=== PATIENT | female | born 1985 | race Caucasian/White ===

== ENCOUNTER 2020-04-01 16:59 | Emergency (ER) | payer OTHER, SELFPAY ==
[2020-04-01 17:01] VITALS: BP 157/107; PULSE 97; RESP 19; TEMP 37.2; O2SAT 97; BMI 18.3
--- NOTE | 2020-04-01 17:15 | CT_ITS ---
PROCEDURE: CT CERVICAL SPINE WO CON Referring Doctor: Shahriar Vásquez Patient Age:35Y CLINICAL INDICATION: pain right-sided neck pain with patient extending into the right shoulder 1 week symptoms but with nausea. COMPARISON: CS5 CERVICAL SPINE 4 OR 5 VIEWS from 03/14/2017 TECHNIQUE: No IV contrast Helical axial images obtained with sagittal and coronal reformats. All CT scans at the facility use one or more dose reduction, viz: automated exposure control, ma/kV adjustment per patient size (including targeted exams where dose is matched to indication, i.e. head), or iterative reconstruction technique. FINDINGS: Cervical spine with no fracture nor subluxation evident. Normal alignment. Normal prevertebral soft tissues. Facets intact with normal relationships. No remarkable degenerative facet changes. Vertebral bodies intact. Neural foramina widely patent at all levels Cranial cervical junction unremarkable. Normal C1/C2 relationships and appearance. The disc spaces are individual reviewed but would note that CT is best utilized for osseous evaluation; and MR most optimal to evaluate disc and soft tissue elements. Overall these disc spaces are well maintained with only scant narrowing at C4/5 disc space. I would also note this patient has a generous volume osseous cervical canal which may decrease the impact of early developing cervical spondylosis C2/3. Disc height well maintained. Disc intact and unremarkable C3/4.. Disc height maintained. Only scant central disc prominence C4/5. Subtle degenerative disc space narrowing; with trace central disc prominence, with only scant developing uncovertebral joint hypertrophy to the right and left paracentral regions. Minimal appearing, very unimpressive features overall. No foraminal encroachment C5/6... Disc height maintained and unremarkable disc intact. Neural foramen widely patent C6/7. Disc height a fairly well maintained with only borderline narrowing. Anterior marginal osteophytes most evident at this level. The sagittal reconstruction views suggest trace central disc prominence and bulge. Neural foramina widely patent C7/T1, T1/T2. Unremarkable by CT Again if there are persistent progressive radicular symptoms MR is best for evaluating for cervical disc disease. Who the The apices of lungs are clear with no acute findings. No evident masses identified at the supraclavicular regions. No gross pathology at region of brachial plexus There is a previous plain film study of C-spine from 2017 which showed a similar appearance with developing anterior marginal osteophytes at C6/7 IMPRESSION: --Cervical spine intact with no fracture nor subluxation.. Only minor barely evident scant early degenerative changes C-spine.. Generous volume osseous cervical canal with neural foramen widely patent at all levels --MR is best to evaluate cervical disc and soft tissue elements,, but today's CT no obvious disc herniation or definitive disc protrusion --Again overall disc spaces are fairly well maintained and unimpressive: . Only note perhaps is trace subtle disc space narrowing with minimal central disc prominence and trace early uncovertebral joint hypertrophy at C4/5.-unimpressive . C6/7: Borderline disc space narrowing with anterior marginal osteophytes, and mild central disc prominence posteriorly. . C3/4: Only trace central disc prominence. Dictated by: Silvio Howard MD 04/01/2020 18:15 Silvio Howard MD in [place] 04/01/2020 18:15
[2020-04-01 17:34] LABS: Urine Pregnancy, HCG Qual. Negative (Negative)
--- NOTE | 2020-04-01 17:42 | HMH.EDGENADL ---
ED Disposition Clinical Impression: Neck pain Disposition: Home, Self-Care Condition on Discharge: Good Instructions: DI for Neck Pain Additional Instructions: Ibuprofen as prescribed. Heating pad for 30 minutes 2-3 times a day. Follow-up with your primary care doctor, call tomorrow to make appointment. Additional instructions for NECK PAIN: See your physician as soon as possible for further evaluation. Return immediately if neck pain becomes intolerable, or if fever, numbness or weakness of your arms or legs, loss of control of your bowels or bladder. Prescriptions: Ibuprofen [Ibuprofen 600mg Tab] 600 mg PO Q6HP PRN #20 tab PRN Reason: Moderate Pain Transmission Status: Pending to [id number] Referrals: Sheldon Victoria MD [Primary Care Provider] - - Critical Care Critical Care Time: No Attestation: On 04/01/20, the high probability of a clinically significant, sudden or life threatening deterioration of the following system(s) required my full and direct attention, intervention and personal management. The time I documented below is in addition to time spent performing reported procedures but includes the following listed in this critical care notation. Medical Decision Making - Casey Inquiry Pt receiving controlled substance: No Vital Signs: 04/01/20 17:01 Temperature 98.9 F Temperature Source Oral Pulse Rate [Left Radial] 97 H Respiratory Rate 19 Blood Pressure [Right Arm] 157/107 H Blood Pressure Mean [Right Arm] 123 Blood Pressure Source [Right Arm] Automatic Cuff Blood Pressure Position [Right Arm] Sitting 02 Sat by Pulse Oximetry 97 Oxygen Delivery Method Room Air - Lab Data Lab Results 04/01/20 17:17: Urine HCG, Qual Negative - CT Data CT Scan: C-Spine Time Received: 18:[address] Reviewed: Yes: I have viewed the radiologist's interpretation Findings Narrative: PROCEDURE: CT CERVICAL SPINE WO CON Referring Doctor: Shahriar Vásquez Patient Age:35Y CLINICAL INDICATION: pain right-sided neck pain with patient extending into the right shoulder 1 week symptoms but with nausea. COMPARISON: CR CS5 CERVICAL SPINE 4 OR 5 VIEWS from 03/14/2017 TECHNIQUE: No IV contrast Helical axial images obtained with sagittal and coronal reformats. All CT scans at the facility use one or more dose reduction, viz: automated exposure control, ma/kV adjustment per patient size (including targeted exams where dose is matched to indication, i.e. head), or iterative reconstruction technique. FINDINGS: Cervical spine with no fracture nor subluxation evident. Normal alignment. Normal prevertebral soft tissues. Facets intact with normal relationships. No remarkable degenerative facet changes. Vertebral bodies intact. Neural foramina widely patent at all levels Cranial cervical junction unremarkable. Normal C1/C2 relationships and appearance. The disc spaces are individual reviewed but would note that CT is best utilized for osseous evaluation; and MR most optimal to evaluate disc and soft tissue elements. Overall these disc spaces are well maintained with only scant narrowing at C4/5 disc space. I would also note this patient has a generous volume osseous cervical canal which may decrease the impact of early developing cervical spondylosis C2/3. Disc height well maintained. Disc intact and unremarkable C3/4.. Disc height maintained. Only scant central disc prominence C4/5. Subtle degenerative disc space narrowing; with trace central disc prominence, with only scant developing uncovertebral joint hypertrophy to the right and left paracentral regions. Minimal appearing, very unimpressive features overall. No foraminal encroachment C5/6... Disc height maintained and unremarkable disc intact. Neural foramen widely patent C6/7. Disc height a fairly well maintained with only borderline narrowing. Anterior marginal osteoph
[2020-04-01 18:45] VITALS: BP 122/85; PULSE 80; RESP 18; TEMP 36.6; O2SAT 100
== END 2020-04-01 18:46 | disposition home or self-care (01) ==
PROVIDERS: Emergency Provider Emergency Medicine; PCP Emergency Medicine
DX: M54.2 Cervicalgia (principal); F17.210 Nicotine dependence, cigarettes, uncomplicated; F41.8 Other specified anxiety disorders; F19.11 Other psychoactive substance abuse, in remission
CPT/HCPCS: 72125; 81025; 96372; 99282

== ENCOUNTER → 2020-04-05 15:47 | Outpatient (CLI) | payer OTHER, SELFPAY ==
[2020-04-10 15:20] LABS: Neisseria gonorrhoeae, NAA Negative (Negative)
== END ==
PROVIDERS: Visit Provider Nurse Practitioner Family
DX: Z11.3 Encounter for screening for infections with a predominantly sexual mode of transmission (principal)
CPT/HCPCS: 87491; 87591

== ENCOUNTER → 2020-04-18 15:38 | Outpatient (CLI) | payer OTHER, SELFPAY ==
--- NOTE | 2020-04-18 15:38 | MR_ITS ---
PROCEDURE: MR CERVICAL SPINE WO CON CLINICAL INDICATION: abnormal ct c spine PT COMPLAINS OF NECK PAIN XYRS. NO INJURY. PRIOR CT 04-01-20 COMPARISON: CT CT CERVICAL SPINE WO CON from 04/01/2020 TECHNIQUE: Standard multiplanar multiecho sequences are performed without contrast. 3-D MIP and myelographic images are also rendered and reviewed FINDINGS: There is normal alignment. The craniocervical junction has an unremarkable appearance. C2-C3 has an unremarkable appearance. C3-C4: Minimal prominence of the posterior longitudinal ligament without impingement. C4-C5: Unremarkable. C5-C6: Unremarkable. C6-C7 and C7-T1 have an unremarkable appearance. No canal stenosis or extruded herniated disc IMPRESSION: Essentially negative MRI of the cervical spine. Dictated by: Joshua Feliz MD 04/21/2020 09:36 Joshua Feliz MD in [place] 04/21/2020 09:36
== END ==
PROVIDERS: PCP Nurse Practitioner Family; Visit Provider Nurse Practitioner Family
DX: M54.2 Cervicalgia (principal)
CPT/HCPCS: 72141; 76376

== ENCOUNTER 2020-07-30 20:03 | Emergency (ER) | payer OTHER, SELFPAY ==
[2020-07-30 20:15] VITALS: BP 114/88; PULSE 105; RESP 20; TEMP 37.7; O2SAT 97; BMI 17.4
--- NOTE | 2020-07-30 20:29 | HMH.EDUTC ---
[facility] [place] Disposition Clinical Impression: Nausea Disposition: Home, Self-Care Condition on Discharge: Good Instructions: DI for Nausea -- Adult, Ondansetron, DI for Vomiting -- Adult, Nausea and Vomiting-Adult, Diarrhea Additional Instructions: ? Avoid fruit juices, as these do not replace minerals and can actually increase diarrhea. ? Children and adults can use sports drinks to replenish electrolytes. Younger children and infants should use products formulated for children, like oral rehydration solutions. ? Eat food in small amounts and let your stomach recover. ? Get lots of rest. You may feel tired or weak. ? No greasy or fried foods for the next 24-48 hours BRAT diet Bananas Rice Apples and [place] ? Make sure to drink plenty of liquids ? Return if needed ? Straight to ER if any life threatening symptoms ? Zofran as prescribed ? Follow up with family doctor in the next 48-72 hours if no improvement or any worsening of symptoms *Monitor Temp, Over the counter Motrin or Tylenol as directed/as needed Tylenol every 4 hours and Motrin every 6 hours (as long as your family doctor has told you that you can take it) for fever or pain. and straight to ER if unable to lower temp less than 101.0 after medication given Follow up IMMEDIATELY for new or worsening symptoms or no Noticeable improvement over the next 48-72 hours. 911 for difficulty breathing or swallowing You were tested for today for COVID19 your test result should be back in the next 24-48 hours, you may call to the [facility] to see if your test results are back in the next 48 hours [phone] [facility] hours are 9am-9pm You was given a handout with instructions for Self Quarantine and Self isolation for while you wait on test results and what to do if they are positive If you are positive the Health Dept will be contacting you also Prescriptions: Ondansetron [Zofran 4mg ODT] 4 mg PO TIDP PRN #12 tab PRN Reason: Vomiting Transmission Status: Pending to [id number] Referrals: Arcadio Montalvo APRN [Primary Care Provider] - As needed Forms: Work/School Release Time of Disposition: 21:11 Medical Decision Making - Casey Inquiry Pt receiving controlled substance: No Casey was queried for this patient: No Vital Signs: 01/18/21 20:15 Temperature 99.9 F H Temperature Source Oral Pulse Rate [Right Brachial] 105 H Respiratory Rate 20 Blood Pressure [Right Arm] 114/88 Blood Pressure Mean [Right Arm] 96 Blood Pressure Source [Right Arm] Automatic Cuff Blood Pressure Position [Right Arm] Sitting 02 Sat by Pulse Oximetry 97 Oxygen Delivery Method Room Air - Lab Data Lab results reviewed: Yes: I reviewed the patient's lab results. Lab Results 07/30/20 20:29: Influenza Type A Ag Negative, Influenza Type B Ag Negative Orders (Tests/Meds): ED MEDICATIONS Discontinued Medications Generic Name Dose Route Start Last Admin Trade Name Freq PRN Reason Stop Dose Admin Ondansetron HCl 4 mg 07/30/20 20:29 07/30/20 20:30 Ondansetron 4mg Odt SL 07/30/20 20:30 4 mg ONCE ONE Administration ORDERS Category Date Time Status Covid-19 Nasal PCR Sendout P&C Stat Lab 07/30/20 20:20 Received Medical Decision Narrative: Patient denies and denies home medications States that she has taken zofran before without complications or reactions No vomiting after medication patient states that she feels a little better [facility] [place] HPI - General Stated complaint: Nauseous;Excessive vomiting Time Seen by Provider: 07/30/20 20:29 Mode of Arrival: Ambulatory Source of Information: Patient Limitations: No Limitations Description of Symptoms (Recalled from Triage Doc. by RN): PATIENT STATES SHE HAD VOMITING AND DIARRHEA ALL NIGHT LAST NIGHT WITH HOT FLASHES HEENT Symptoms (Recalled from RN notes): No Resp Symptoms (Recalled from RN notes): No Skin Symptoms (Recalled from RN notes): No MS Symptoms (Recalled from RN notes): No Functional Status (Recall
[2020-07-30 20:58] LABS: UTC Influenza A Antigen Negative (Negative); UTC Influenza B Antigen Negative (Negative)
[2020-07-30 21:23] VITALS: BP 114/88; PULSE 105; RESP 20; TEMP 37.7; O2SAT 97
[2020-08-01 08:31] LABS: Covid-19 Nasal PCR Sendout P&C NEGATIVE
== END 2020-07-30 21:26 | disposition home or self-care (01) ==
PROVIDERS: Emergency Provider Nurse Practitioner; PCP Nurse Practitioner Family
DX: Z20.822 Contact with and (suspected) exposure to COVID-19 (principal); R11.2 Nausea with vomiting, unspecified
CPT/HCPCS: 87804; 99202; G0463; U0004

== ENCOUNTER 2021-03-24 15:46 | Emergency (ER) | payer OTHER, SELFPAY ==
[2021-03-24 16:32] VITALS: BP 137/71; PULSE 85; RESP 16; TEMP 36.8; O2SAT 96; BMI 17.4
--- NOTE | 2021-03-24 16:45 | HMH.EDUTC ---
[facility] [place] Clinical Impression: Neck pain Disposition: Home, Self-Care Condition on Discharge: Good Instructions: DI for Chronic Neck Pain Additional Instructions: Follow up with Arcadio this week. Also try to get eye exam to evaluate papilledema. Referrals: Arcadio Montalvo APRN [Primary Care Provider] - Time of Disposition: 17:00 Medical Decision Making - Casey Inquiry Pt receiving controlled substance: No Vital Signs: 03/24/21 16:32 Temperature 98.3 F Temperature Source Oral Pulse Rate [Left] 85 Respiratory Rate 16 Blood Pressure [Right Arm] 137/71 Blood Pressure Mean [Right Arm] 93 02 Sat by Pulse Oximetry 96 [facility] [place] HPI - General Stated complaint: neck pain headache no accident Time Seen by Provider: 03/24/21 16:45 Mode of Arrival: Ambulatory Source of Information: Patient Limitations: No Limitations Description of Symptoms (Recalled from Triage Doc. by RN): pt c/o of neck pain and that its difficult to hold her head up. this has been ongoing for awhile. pt is also sensitive to light. HEENT Symptoms (Recalled from RN notes): Yes (neck pain and light sensitivity.) Resp Symptoms (Recalled from RN notes): No Skin Symptoms (Recalled from RN notes): No MS Symptoms (Recalled from RN notes): No Functional Status (Recalled from RN notes): na - History of Present Illness Provider Complaint: Patient has neck pain radiating into her head. Has had ongoing neck pain. Has had for years. Has seen chiropractor in the past. Had MRI last year. Has sensitivity to light, head feels heavy like she literally cannot hold it up. Feels like there is pressure in the back of her head that is going to explode. Onset (ago): unknown Location: head Radiation: neck Consistency: constant Relieving factors: none Exacerbating factors: none Associated symptoms: denies other symptoms Treatments prior to arrival: none - Related Data Previous Rx's Medication Instructions Recorded cephalexin 500 mg capsule 500 mg PO Q12H 10 Days #20 cap 12/12/20 mupirocin calcium 2 % topical cream 1 applic TOPICAL BID #15 g 12/12/20 Allergies Allergy/AdvReac Type Severity Reaction Status Date / Time No Known Allergies Allergy Verified 12/12/20 14:11 - Worker's Comp Is this a Worker's Comp case?: No [facility] History - Hepatitis A Screen Drug use history?: No High risk sexual behaviors?: No History of sexually transmitted infection?: No Currently employed?: No Childcare worker?: No Do you have indoor plumbing?: Yes Do you have electricity?: Yes Attestation statement:: This patient has been screened for Hepatitis A risk factors. I have reviewed the patient's past medical history: Yes Medical History: Reports:: Anxiety, Depression Other Surgeries: Yes: Other Amputation: No Fractures: No Comment: abortions x2, place removed from side - Social History Smoking Status: Current every day smoker Tobacco Type: cigarettes # Packs/Day (cigarettes): 1 Alcohol Intake: never Alcohol Intake Frequency:: holidays/special occasions only Substance Use Type: former substance user, marijuana Occupational Status: other - Psychiatric History Pschychiatric History:: Reports:: Anxiety, Depression Family Hx:: No significant family history ROS Obtained: Yes All systems reviewed & no additional complaints - Eyes Eyes: Reports sensitivity to light - Musculoskeletal Musculoskeletal: Reports neck pain Physical Exam - General General appearance: alert, in no apparent distress - Head Head exam: atraumatic, normocephalic - Eye Eye exam: Present: PERRL - ENT ENT exam: Present: normal oropharynx, TM's normal bilaterally - Neck Neck exam: Present: normal inspection, full ROM, tenderness. Absent: meningismus, lymphadenopathy - Chest Chest inspection: Present: normal inspection, symmetric chest wall rise - Respiratory Respiratory exam: Present: normal lung sounds bilaterally. Absent: respiratory distress - Cardi
[2021-03-24 17:17] VITALS: BP 137/71; PULSE 85; RESP 16; TEMP 36.8
== END 2021-03-24 17:51 | disposition home or self-care (01) ==
LOC: ER 16:10 → UTC 16:10
PROVIDERS: Emergency Provider Physician Assistant; PCP Nurse Practitioner Family
DX: M54.2 Cervicalgia (principal); F41.8 Other specified anxiety disorders; F17.210 Nicotine dependence, cigarettes, uncomplicated
CPT/HCPCS: 99202; G0463

== ENCOUNTER 2021-05-23 03:21 | Emergency (ER) | payer OTHER, SELFPAY ==
[2021-05-23 03:23] VITALS: BP 139/68; PULSE 116; RESP 16; TEMP 37.1; O2SAT 96; BMI 17.4
--- NOTE | 2021-05-23 03:38 | CT_ITS ---
PROCEDURE INFORMATION: Exam: CT Cervical Spine Without Contrast Exam date and time: 05/23/2021 3:38 AM Age: 36 years old Clinical indication: Patient HX: Neck pain for awhile, no known injury TECHNIQUE: Imaging protocol: Computed tomography images of the cervical spine without contrast. Radiation optimization: All CT scans at this facility use at least one of these dose optimization techniques: automated exposure control; mA and/or kV adjustment per patient size (includes targeted exams where dose is matched to clinical indication); or iterative reconstruction. COMPARISON: MR CERVICAL SPINE WO CON 04/18/2020 4:14 PM FINDINGS: Bones/joints: There is minimal grade 1 anterolisthesis of C3 on C4, similar to prior MRI and likely chronic/degenerative. No new spondylolisthesis or uncovering of facet joints. No acute cervical spine fracture. Discs/Spinal canal/Neural foramina: Mild disc height loss and degenerative endplate spurring at C4-C5 and C5-C6. There is [id number]-[id number] degenerative disc disease at C6-C7. There is slight effacement of the ventral thecal space from C3-C4 through C6-C7 due to disc bulging/protrusions, without evidence of a significant spinal canal stenosis. There is mild left and minimal right neural foraminal narrowing at C6-C7 due to endplate spurring and uncovertebral hypertrophy. Lungs: Mild scarring at the bilateral lung apices. Soft tissues: Unremarkable. IMPRESSION: 1. No acute finding within the cervical spine. 2. Chronic minimal grade 1 anterolisthesis of C3 on C4. 3.Mild degenerative changes as discussed above, without evidence of significant spinal canal stenosis.
[2021-05-23 03:47] LABS: Microscopic, Urine URINE MICROSCOPIC (MICROSCOPIC)
[2021-05-23 03:51] LABS: Bilirubin,Urine Negative (Negative); Blood, Urine Negative (Negative); Color,Urine YELLOW (Yellow); Glucose,Urine (UA) Negative (Negative); Ketones,Urine Negative (Negative); Leukocyte Esterase,Urine Negative (Negative); Nitrate,Urine POSITIVE (Negative); PH,Urine 5.5 (5.0-8.5); Protein,Urine Negative (Negative); Specific Gravity, Urine >= 1.030 (1.005-1.030); Urobilinogen,Urine 0.2 EU/dl (0.2)
[2021-05-23 03:54] LABS: Urine Pregnancy, HCG Qual. Negative (Negative)
[2021-05-23 03:56] LABS: Basophils # 0.1 K/mm3 (0-0.2); Basophils % 0.5 % (0.1-2.0); Eosinophils # 0.3 K/mm3 (0.0-0.4); Eosinophils % 1.9 % (0.1-12.0); Hematocrit 43.5 % (37.0-47.0); Hemoglobin 13.9 g/dL (12.2-16.2); Lymphocytes # 4.5 K/mm3 (0.7-4.5); Lymphocytes % 24.9 % (10-50); Mean Corpuscular HGB Conc 32.1 g/dL (31.8-35.4); Mean Corpuscular Hemoglobin 31.4 pg (27.0-31.2); Mean Corpuscular Volume 97.9 fl (81-99); Mean Platelet Volume 9.7 fl (7.4-10.4); Monocytes # 0.6 K/mm3 (0.1-1.0); Monocytes % 3.4 % (1.7-9.3); Neutrophils # 12.4 K/mm3 (1.8-7.8); Neutrophils % 69.3 % (37.0-80.0); Platelet Count 231 K/mm3 (142-424); Red Blood Count 4.44 M/mm3 (4.20-5.40); White Blood Count 17.9 K/mm3 (4.8-10.8)
[2021-05-23 03:57] LABS: Alanine Aminotransferase 13 U/L (12-78); Albumin Level 4.6 g/dl (3.5-5.0); Albumin/Globulin Ratio 1.8 (1.1-1.8); Alkaline Phosphatase 49 U/L (38-126); Anion Gap 13.3 mEq/L (5-15); Aspartate Amino Transferase 19 U/L (14-36); Bilirubin,Total 0.2 mg/dl (0.2-1.3); Blood Urea Nitrogen 8 mg/dl (7-17); Calcium 9.6 mg/dl (8.4-10.2); Carbon Dioxide 28 mmol/L (22.0-30.0); Chloride 104 mmol/L (98-107); Creatinine Clearance Estimated 96 mL/min (50-200); Estimated Glomerular Filt Rate 112 ml/min (>60); GFR (African American) 135 ML/MIN (>60); Globulin 2.6 g/dL (1.3-3.2); Glucose 117 mg/dl (74-100); Potassium 4.3 mmoL/L (3.5-5.1); Sodium 141 mmol/L (136-145); Total Protein,Serum 7.2 g/dl (6.3-8.2)
[2021-05-23 03:59] LABS: Appearance,Urine Slightly Cloudy (Clear); MANUAL DIFFERENTIAL MANUAL DIFFERENTIAL (MANUAL DIFF)
[2021-05-23 04:02] LABS: C-Reactive Protein 0.6 mg/L (0-4)
[2021-05-23 04:05] LABS: Barbiturates Screen,Urine Negative ng/ml (<200); Benzodiazepines Screen,Urine Negative ng/ml (<200)
[2021-05-23 04:06] LABS: Amphetamine/Metha Screen,Urine Negative ng/ml (<1000); Methadone Screen,Urine Negative ng/ml (<300)
[2021-05-23 04:07] LABS: Cannabinoid Screen,Urine Positive ng/ml (<50)
[2021-05-23 04:08] LABS: Cocaine Screen,Urine Negative ng/ml (<300); Opiate Screen,Urine Negative ng/ml (<300)
[2021-05-23 04:09] LABS: Phencyclidine Screen,Urine Negative ng/ml (<25)
[2021-05-23 04:12] LABS: Bacteria,Urine 1+ /lpf; Squamous Epithelial Cell,Urine Occasional #/hpf (0-5); WBC,Urine Occasional #/hpf (0-3)
[2021-05-23 04:18] LABS: Procalcitonin < 0.030 ng/mL (0.0-2.0)
--- NOTE | 2021-05-23 04:18 | CT_ITS ---
PROCEDURE INFORMATION: Exam: CT Head Without Contrast Exam date and time: 05/23/2021 4:18 AM Age: 36 years old Clinical indication: Pain; Dizziness; Headache; Additional info: MARTIN TECHNIQUE: Imaging protocol: Computed tomography of the head without contrast. Radiation optimization: All CT scans at this facility use at least one of these dose optimization techniques: automated exposure control; mA and/or kV adjustment per patient size (includes targeted exams where dose is matched to clinical indication); or iterative reconstruction. COMPARISON: CT CERVICAL SPINE WO CON 05/23/2021 4:06 AM FINDINGS: Brain: No acute-appearing loss of chance-white differentiation or evidence of large territorial acute ischemia. No mass effect or midline shift. No intracranial hemorrhage. Cerebral ventricles: Within expected limits for age and brain volume status. No ventricular outflow obstruction. Paranasal sinuses: Visualized sinuses are unremarkable. No fluid levels. Mastoid air cells: Visualized mastoid air cells are well aerated. Bones/joints: No depressed or calvarial fracture. Soft tissues: Unremarkable. IMPRESSION: No evidence of an acute intracranial abnormality.
[2021-05-23 04:34] LABS: Erythrocyte Sedimentation Rate 11 mm/hr (0-20)
[2021-05-23 04:56] LABS: Eosinophils % 1 % (0-3); Lymphocytes % 25 % (10-50); Monocytes % 4 % (2-9); Neutrophils % 70 % (42-76); Total Cells Counted 100
[2021-05-23 04:57] LABS: Platelet Estimate Normal; RBC Morphology Normal
--- NOTE | 2021-05-23 05:19 | HMH.EDHA ---
ED Disposition Clinical Impression: Headache Qualifiers: Headache type: unspecified Headache chronicity pattern: acute headache Intractability: not intractable Qualified Code(s): R51.9 - Headache, unspecified Leukocytosis (leucocytosis) Qualifiers: Leukocytosis type: unspecified Qualified Code(s): D72.829 - Elevated white blood cell count, unspecified Disposition: Home, Self-Care Condition on Discharge: Good Instructions: DI for Headache Additional Instructions: see pcp for follow up Referrals: Sheldon Victoria MD [Primary Care Provider] - - Critical Care Critical Care Time: No Attestation: On 05/23/21, the high probability of a clinically significant, sudden or life threatening deterioration of the following system(s) required my full and direct attention, intervention and personal management. The time I documented below is in addition to time spent performing reported procedures but includes the following listed in this critical care notation. Medical Decision Making - Medical Records Medical records reviewed: Yes: I reviewed the patient's medical records. - Casey Inquiry Pt receiving controlled substance: No Vital Signs: 05/23/21 03:23 Temperature 98.7 F Temperature Source Oral Pulse Rate [Right Radial] 116 H Respiratory Rate 16 Blood Pressure [Right Arm] 139/68 Blood Pressure Mean [Right Arm] 91 Blood Pressure Source [Right Arm] Automatic Cuff Blood Pressure Position [Right Arm] Sitting 02 Sat by Pulse Oximetry 96 Oxygen Delivery Method Room Air - Lab Data Lab results reviewed: Yes: I reviewed the patient's lab results. Lab Results 05/23/21 03:40: Urine Color Yellow, Urine Appearance Slightly cloudy, Urine pH 5.5, Ur Specific [place] >= 1.030, Urine Protein Negative, Urine Glucose (UA) Negative, Urine Ketones Negative, Urine Blood Negative, Urine Nitrate Positive, Urine Bilirubin Negative, Urine Urobilinogen 0.2, Ur Leukocyte Esterase Negative, Urine WBC Occasional, Ur Squamous Epith Cells Occasional, Urine Bacteria 1+ 05/23/21 03:40: WBC 17.9 H, RBC 4.44, Hgb 13.9, Hct 43.5, MCV 97.9, MCH 31.4 H, MCHC 32.1, RDW 13.0, Plt Count 231, MPV 9.7, Neut % (Auto) 69.3, Lymph % (Auto) 24.9, Stark % (Auto) 3.4, Eos % (Auto) 1.9, Baso % (Auto) 0.5, Neut # (Auto) 12.4 H, Lymph # (Auto) 4.5, Stark # (Auto) 0.6, Eos # (Auto) 0.3, Baso # (Auto) 0.1, Total Counted 100, Neutrophils % (Manual) 70, Lymphocytes % (Manual) 25, Monocytes % (Manual) 4, Eosinophils % (Manual) 1, Platelet Estimate Normal, RBC Morphology Normal, ESR 11 05/23/21 03:40: Urine HCG, Qual Negative 05/23/21 03:40: Sodium 141, Potassium 4.3, Chloride 104, Carbon Dioxide 28, Anion Gap 13.3, BUN 8, Creatinine 0.60, Estimated Creat Clear 96, Estimated GFR 112, Est GFR ( Amer) 135, Glucose 117 H, Calcium 9.6, Total Bilirubin 0.2, AST 19, ALT 13, Alkaline Phosphatase 49, C-Reactive Protein 0.6, Total Protein 7.2, Albumin 4.6, Globulin 2.6, Albumin/Globulin Ratio 1.8, Procalcitonin < 0.030 05/23/21 03:40: Urine Opiates Screen Negative, Urine Methadone Screen Negative, Ur Barbituates Screen Negative, Ur Phencyclidine Scrn Negative, Ur Amphetamines Screen Negative, U Benzodiazepines Scrn Negative, Urine Cocaine Screen Negative, U Marijuana (THC) Screen Positive H Result diagrams: 05/23/21 03:40 05/23/21 03:40 Orders (Tests/Meds): ED MEDICATIONS Generic Name Dose Route Start Last Admin Trade Name Freq PRN Reason Stop Dose Admin Lactated Ringer's 1,000 mls @ 999 mls/hr 05/23/21 03:45 05/23/21 03:58 Lactated Ringer's 1000 Ml Bag IV 05/23/21 04:45 999 mls/hr .[id number] CHARI Administration Discontinued Medications Generic Name Dose Route Start Last Admin Trade Name Freq PRN Reason Stop Dose Admin Ketorolac Tromethamine 30 mg 05/23/21 03:39 05/23/21 03:58 Ketorolac 30mg/Ml Vial IV 05/23/21 03:40 30 mg ONCE ONE Administration Methylprednisolone Sodium Succinate 125 mg 05/23/21 03:50 05/23/21 03:58 Methylprednisolon
[2021-05-23 05:23] VITALS: BP 103/59; PULSE 89; RESP 16; TEMP 36.7; O2SAT 98
== END 2021-05-23 05:31 | disposition home or self-care (01) ==
PROVIDERS: Emergency Provider Emergency Medicine; PCP Emergency Medicine
DX: R51.9 Headache, unspecified (principal); M54.2 Cervicalgia; D72.829 Elevated white blood cell count, unspecified; F17.210 Nicotine dependence, cigarettes, uncomplicated; F41.8 Other specified anxiety disorders
CPT/HCPCS: 70450; 72125; 80053; 80305; 81001; 81025; 84145; 85007; 85025; 85651; 86140; 96365; 96375; 99283; J2405

== ENCOUNTER 2022-10-28 08:33 | Emergency (ER) | payer OTHER, SELFPAY ==
[2022-10-28] VITALS (9 sets, daily range): BP systolic 91–122; BP diastolic 54–80; PULSE 62–86; RESP 16–17; TEMP 36.4–37; O2SAT 98–100; BMI 17.4
--- NOTE | 2022-10-28 08:49 | CT_ITS ---
FINAL REPORT TECHNIQUE: Postcontrast axial images through the abdomen and pelvis were performed. This study was performed with techniques to keep radiation doses as low as reasonably achievable, (ALARA). Individualized dose reduction techniques using automated exposure control or adjustment of mA and/or kV according to the patient's size were employed. CLINICAL HISTORY: lower abd pain, vomiting FINDINGS: Abdomen: The lung bases are clear. The liver is normal in size and attenuation. The patient is status post cholecystectomy. The spleen is unremarkable. The adrenals are normal. The pancreas is unremarkable. The kidneys enhance appropriately. The aorta is normal in caliber. No free fluid or adenopathy is identified. No findings for mechanical bowel obstruction are identified. Pelvis: An IUD is present in the uterus. There is mild bladder wall thickening, likely inflammatory. The appendix is partially visualized and appears normal. There is a moderate to large amount of retained stool throughout the colon. No free fluid, free air, abscess or adenopathy is identified. IMPRESSION: Moderate to large stool burden. No acute intra-abdominal process. Reviewed, Interpreted and Dictated by Adama La III, MD Transcribed by Minerva Mccarthy Authenticated and [facility]
[2022-10-28 09:07] LABS: Microscopic, Urine URINE MICROSCOPIC (MICROSCOPIC)
[2022-10-28 09:08] LABS: Basophils % 0.6 % (0.1-2.0); Eosinophils # 0.3 K/mm3 (0.0-0.4); Eosinophils % 4.1 % (0.1-12.0); Hematocrit 43.5 % (37.0-47.0); Hemoglobin 14.1 g/dL (12.2-16.2); Lymphocytes # 2.4 K/mm3 (0.7-4.5); Lymphocytes % 37.5 % (10-50); Mean Corpuscular HGB Conc 32.3 g/dL (31.8-35.4); Mean Corpuscular Hemoglobin 30.9 pg (27.0-31.2); Mean Corpuscular Volume 95.6 fl (81-99); Mean Platelet Volume 8.7 fl (7.4-10.4); Monocytes # 0.3 K/mm3 (0.1-1.0); Monocytes % 5.2 % (1.7-9.3); Neutrophils # 3.4 K/mm3 (1.8-7.8); Neutrophils % 52.6 % (37.0-80.0); Platelet Count 222 K/mm3 (142-424); Red Blood Count 4.55 M/mm3 (4.20-5.40); Red Cell Distribution Width 12.9 % (11.5-17.5); White Blood Count 6.5 K/mm3 (4.8-10.8)
[2022-10-28 09:11] LABS: Appearance,Urine CLEAR (Clear); Bilirubin,Urine Negative (Negative); Blood, Urine Negative (Negative); Color,Urine YELLOW (Yellow); Glucose,Urine (UA) Negative (Negative); Ketones,Urine Negative (Negative); Leukocyte Esterase,Urine Negative (Negative); Nitrate,Urine Negative (Negative); PH,Urine 7.5 (5.0-8.5); Protein,Urine Negative (Negative); Urobilinogen,Urine 0.2 EU/dl (0.2)
[2022-10-28 09:12] LABS: Alanine Aminotransferase 28 U/L (12-78); Albumin Level 4.4 g/dl (3.5-5.0); Albumin/Globulin Ratio 1.6 (1.1-1.8); Alkaline Phosphatase 51 U/L (38-126); Anion Gap 12.4 mEq/L (5-15); Aspartate Amino Transferase 30 U/L (14-36); Bilirubin,Total 0.4 mg/dl (0.2-1.3); Blood Urea Nitrogen 10 mg/dl (7-17); Carbon Dioxide 27 mmol/L (22.0-30.0); Chloride 102 mmol/L (98-107); Creatinine Clearance Estimated 95 mL/min (50-200); Estimated Glomerular Filt Rate 111 ml/min (>60); GFR (African American) 135 ML/MIN (>60); Globulin 2.8 g/dL (1.3-3.2); Glucose 116 mg/dl (74-100); Potassium 4.4 mmoL/L (3.5-5.1); Sodium 137 mmol/L (136-145); Total Protein,Serum 7.2 g/dl (6.3-8.2)
[2022-10-28 09:13] LABS: Urine Pregnancy, HCG Qual. Negative (Negative)
--- NOTE | 2022-10-28 09:19 | PC.NURSE ---
PT TO CT AT THIS TIME
[2022-10-28 09:23] LABS: Bacteria,Urine Trace /lpf
[2022-10-28 09:27] LABS: Activated Partial Thrombo Time 26.5 seconds (22.8-30.6); INR 0.94 (0.9-1.1); Prothrombin Time 10.2 seconds (10.1-12.5)
[2022-10-28 09:48] LABS: Procalcitonin < 0.030 ng/mL (0.0-2.0)
--- NOTE | 2022-10-28 09:50 | PC.NURSE ---
pt medicated per SEP as ordered. lights dimmed in pts room for comfort, call light in reach, states no other needs at this time
--- NOTE | 2022-10-28 10:26 | HMH.EDABDPAI ---
Discharge Plan Disposition Patient Disposition: Home, Self-Care Prescriptions Prescriptions: New ibuprofen 600 mg tablet 600 mg PO Q6H PRN (Reason: fever) Qty: 40 0RF polyethylene glycol 3350 [Miralax] 17 gram/dose powder 17 g PO DAILY 4 Days Qty: 68 0RF No Action ondansetron 4 mg tablet,disintegrating 4 mg PO Q8H PRN (Reason: nausea and vomiting) Qty: 20 0RF Referrals Follow up/Referrals: Sheldon Victoria MD [Primary Care Provider] - See instructions Clinical Impressions Clinical Impression: Abdominal pain, Constipation, Ovarian cyst Instructions Patient Instructions: DI for Acute Abdominal Pain Discharge ED Provider: Faiza Barry Abdominal Pain HPI General Chief Complaint: Abdominal Pain Stated Complaint: vomiting, abd pain Time Seen by Provider: 10/28/22 09:02 Mode of Arrival: Ambulatory Source of Information: Patient Limitations: No Limitations Description of Symptoms (Recalled from ER Triage Doc. by RN): Pt reports vomitting and lower abd pain that began lastnight. Pt denies diarrhea, denies fever or urinary symptoms. History of Present Illness HPI narrative: Patient is a 37-year female with complaint lower abdominal pain. Patient stated that since 3:00 this morning she had intractable nausea vomiting and lower abdominal pain. She has no diarrhea no constipation. She has no fever or chills. She has her appendix and her ovaries and tubes. She is has IUD so she knows she is not . Patient's not having any vaginal bleeding or vaginal discharge. She has had no fevers and chills or loss of appetite. Patient stated that pain was severe 10 out of 10 suprapubic area is where its worst but then it radiates to the right and left lower quadrant describes the pain as sharp 8 out of 10. complaint: abdominal pain Onset (ago): hour(s) Consistency: constant Location: suprapubic Severity: moderate Severity scale (1-10): 8 Quality: stabbing and sharp Radiation: LLQ and RLQ Migration to: LLQ and RLQ Relieving factors: nothing Exacerbating factors: nothing Associated symptoms: nausea and vomiting Related Data LMP (females 10-50): 2 months Previous Rx's Medication Instructions Recorded ondansetron 4 mg disintegrating 4 mg PO Q8H PRN nausea and 09/03/22 tablet vomiting #20 tabs ibuprofen 600 mg tablet 600 mg PO Q6H PRN fever #40 tabs 10/28/22 polyethylene glycol 3350 17 17 g PO DAILY 4 days #68 grams 10/28/22 gram/dose oral powder (Miralax) Allergies Allergy/AdvReac Type Severity Reaction Status Date / Time No Known Allergies Allergy Verified 09/03/22 13:47 [facility] Disclaimer: The information contained in this section may have been updated after the patient was seen, as this information can be updated by other users. Medical History (Updated 10/28/22 @ 13:47 by Faiza Barry MD) Dental abscess Headache Leukocytosis (leucocytosis) Neck pain Pain, dental Patient left without being seen Social History Smoking Status: Current every day smoker tobacco type: cigarettes packs per day: 1 alcohol intake: never substance use type: former substance user and marijuana current occupational status: other Travel in the last 8 weeks: None number of children: 2 ROS Obtained: Yes All systems reviewed & no additional complaints except as documented Gastrointestinal Gastrointestingal: Reports abdominal pain and vomiting Physical Exam General General appearance: alert and in distress Head Head exam: atraumatic, normocephalic and normal inspection Eye Eye exam: Present normal appearance, PERRL and EOMI; Absent scleral icterus or conjunctival redness ENT ENT exam: Present normal exam, normal oropharynx and mucous membranes dry; Absent mucous membranes moist Neck Neck exam: Present normal inspection, full ROM and trachea midline Chest Chest inspection: Present normal inspection and symmetric chest wa
--- NOTE | 2022-10-28 10:32 | US_ITS ---
FINAL REPORT CLINICAL HISTORY: pelvic pain FINDINGS: Transvaginal sonographic images of the pelvis were obtained. The uterus measures 9.1 x 3.6 x 5.1 cm. The endometrium measures 0.19 cm. The right ovary is normal measuring up to 3.2 cm. There is a right ovarian cyst measuring up to 2.0 cm. The left ovary is normal measuring up to 3.2 cm. An IUD is seen in the endometrial cavity. No free fluid is identified. IMPRESSION: Right ovarian cyst. Reviewed, Interpreted and Dictated by Adama La III, MD Transcribed by Minerva Mccarthy Authenticated and [facility]
--- NOTE | 2022-10-28 11:18 | PC.NURSE ---
pt back from US. rounded on patient, call light within reach. no needs at this time. pt sitting on ED stretcher playing on cell phone.
[2022-10-28 11:55] LABS: Lactic Acid 0.6 mmol/L (0.7-2.1)
--- NOTE | 2022-10-28 12:23 | PC.NURSE ---
contacted rad to check on status of u/s results, states scans are in locked status
--- NOTE | 2022-10-28 12:50 | PC.NURSE ---
rounded on pt at this time, notified pt we are waiting on u/s results, rad staff states pt ct is in locked status so supposed to be in line to be read. pt states no needs at this time, call light in reach
--- NOTE | 2022-10-28 21:19 | PC.NURSE ---
patient returned for 's note. chart accessed, printed
== END 2022-10-28 14:06 | disposition home or self-care (01) ==
PROVIDERS: Emergency Provider Emergency Medicine; PCP Emergency Medicine
DX: R10.31 Right lower quadrant pain (principal); R10.32 Left lower quadrant pain; R11.10 Vomiting, unspecified; F17.210 Nicotine dependence, cigarettes, uncomplicated
CPT/HCPCS: 36415; 74177; 76830; 80053; 81001; 81025; 83605; 84145; 85025; 85610; 85730; 96374; 96375; 99285; J2405; Q9967